=== PATIENT | female | born 1950 | race Caucasian/White ===

== ENCOUNTER 2017-02-08 10:42 | Emergency (ER) | payer MEDICARE, MEDICAID ==
[~2017-02-08] VITALS: Ht 157.5 cm; Wt 60.8 kg
[~2017-02-08 10:42] MED LIST: HYDR-971 PO; MUPI22OI2 TP; SULF1TAB24 PO
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
[2017-02-08] MEDS ORDERED: HYDROcodone/APAP 10/325 1 TAB TABLET PO ONE (11:30)
[2017-02-08] MEDS ORDERED: ONDANSETRON ODT 4 MG TAB.RAPDIS. PO ONE (11:30)
[2017-02-08] MEDS ORDERED: clonazePAM 0.5 MG TABLET PO ONE (11:30)
[2017-02-08] MEDS ORDERED: HYDR-963 PO (11:49)
[2017-02-08] MEDS ORDERED: CLON2TAB2 PO (11:49)
[2017-02-08 12:48] VITALS: BP 113/91
== END 2017-02-08 12:49 | disposition home or self-care (01) ==
LOC: ER 10:42
DX: F13.239 Sedative, hypnotic or anxiolytic dependence with withdrawal, unspecified (principal); F11.23 Opioid dependence with withdrawal; F41.9 Anxiety disorder, unspecified; J44.9 Chronic obstructive pulmonary disease, unspecified; F32.9 Major depressive disorder, single episode, unspecified; I10 Essential (primary) hypertension; F12.10 Cannabis abuse, uncomplicated; F43.10 Post-traumatic stress disorder, unspecified; G89.29 Other chronic pain; Z88.0 Allergy status to penicillin
CPT/HCPCS: 99284; Q0162

== ENCOUNTER 2017-04-14 13:36 | Emergency (ER) | payer MEDICARE, MEDICAID ==
[~2017-04-14] VITALS: Ht 152.4 cm; Wt 59.0 kg
[2017-04-14 13:36] VITALS: BP 156/97
[~2017-04-14 13:36] MED LIST changes: +CLON2TAB2 PO; +HYDR-963 PO
[2017-04-14] MEDS ORDERED: DIPHTH,PERTUSS(ACELL),TET TOX 0.5 ML DISP.SYRIN. VAX IM ONE (14:15)
--- NOTE | 2017-04-14 14:47 | RAD ---
Indication fall. Head and neck injury. Pain. The head and cervical spine were evaluated. Images of the cervical spine were reformatted in the coronal and sagittal planes. No prior imaging of the head is available CT head: Findings. The calvarium appears unremarkable and the visualized paranasal sinuses appear normal. There is no subdural or epidural hematoma. There is no mass or midline shift. No hemorrhage is seen. No acute intracranial finding is apparent CT cervical spine: Findings There is some chronic pleural-parenchymal scarring at the lung apices. There are a few lymph nodes seen in the visualized upper mediastinum. These are likely incidental and appear similar to a study 09/16/2012. A significant soft tissue finding in the neck is not seen. Review of axial images is negative with regards to any fracture. Best demonstrated on the reformatted images are some degenerative changes. There is multilevel disc space narrowing. An acute finding is not seen on the reformatted images. IMPRESSION: Spondylitic changes in the cervical spine. No acute findings seen. No acute intracranial finding seen PQRS Compliance Statement: One or more of the following individualized dose reduction techniques were utilized for this examination: 1. Automated exposure control 2. Adjustment of the mA and/or kV according to patient size 3. Use of iterative reconstruction technique
--- NOTE | 2017-04-14 14:50 | RAD ---
Indication fall, pain. An AP view of the pelvis was obtained as well as targeted AP and frog leg views of the left hip. There is deformity, compatible with fracture, involving the left ischium. There is a mildly distracted fracture of the inferior pubic ramus. The chronicity is uncertain. Correlation with targeted physical exam. The hip joint appears unremarkable. IMPRESSION: Fracture deformity, the chronicity of which is uncertain, involving the left inferior pubic ramus. No hip fracture seen
[2017-04-14] MEDS ORDERED: HYDROcodone/APAP 10/325 1 TAB TABLET PO ONE (15:00)
--- NOTE | 2017-04-14 16:05 | PHYS DOC ---
Past Medical History Past Medical History: Anxiety, COPD, Depression, Hypertension, Other Additional Past Medical Histor: PTSD,CHRONIC BACK PAIN Past Surgical History: Hysterectomy, Tubal ligation Alcohol Use: None Drug Use: Marijuana Adult General Chief Complaint Chief Complaint: MECHANICAL FALL HPI HPI [id number] female with a history of anxiety depression presents to the emergency department after trip and fall. Patient bumped her left forehead she has some mild swelling and an abrasion in that distribution. Tetanus is not up- to-date. She denies loss of consciousness. She reported some neck pain on arrival. A collar was placed She does have some soreness in the left hip area. No chest pain or shortness of breath. Denies abdominal pain. Normal range of motion of legs without difficulty. Denies spinal pain Review of Systems Review of Systems Constitutional: Denies fever or chills [] Eyes: Denies change in visual acuity, redness, or eye pain [] HENT: Denies nasal congestion or sore throat [] Respiratory: Denies cough or shortness of breath [] Cardiovascular: No additional information not addressed in HPI [] GI: Denies abdominal pain, nausea, vomiting, bloody stools or diarrhea [] : Denies dysuria or hematuria [] Musculoskeletal: Denies back pain or joint pain [] Integument: Denies rash or skin lesions [] Neurologic: Denies headache, focal weakness or sensory changes [] Endocrine: Denies polyuria or polydipsia [] Current Medications Current Medications Current Medications Medications (Trade) Dose Ordered Sig/Jhon Start Time Stop Time Status Last Admin Dose Admin Acetaminophen/ Hydrocodone Bitart (Lortab 10/325) 1 tab 1X ONCE 04/14/17 15:00 04/14/17 15:01 DC 04/14/17 14:53 1 TAB Diphtheria/ Tetanus/Acell Pertussis (Boostrix) 0.5 ml ONCE ONCE 04/14/17 14:15 04/14/17 14:16 DC 04/14/17 14:35 0.5 ML Allergies Allergies Allergies Coded Allergies Type Severity Reaction Last Updated Verified Penicillins Allergy Intermediate RASH 06/09/15 Yes Physical Exam Physical Exam Well appearing 67-year-old female no acute distress mild abrasion left forehead with minimal soft tissue swelling locally. No bony tenderness or crepitus. Extra muscles intact. C-collar in place removed for exam with in-line immobilization. No step off or bony midline tenderness. Nonfocal neurologic exam. Mild soft tissue tenderness over left hip area. Nontender stable pelvis HENT: Normocephalic, atraumatic, bilateral external ears normal, oropharynx moist, no oral exudates, nose normal. [] Eyes: PERRLA, EOMI, conjunctiva normal, no discharge. [] Neck: Normal range of motion, no tenderness, supple, no stridor. [] Cardiovascular:Heart rate regular rhythm, no murmur [] Lungs & Thorax: Bilateral breath sounds clear to auscultation [] Abdomen: Bowel sounds normal, soft, no tenderness, no masses, no pulsatile masses. [] Skin: Warm, dry, no erythema, no rash. [] Back: No tenderness, no CVA tenderness. [] Extremities: No tenderness, no cyanosis, no clubbing, ROM intact, no edema. [] Neurologic: Alert and oriented X 3, normal motor function, normal sensory function, no focal deficits noted. [] Psychologic: Affect normal, judgement normal, mood normal. [] Current Patient Data Vital Signs Vital Signs Date Time Temp Pulse Resp B/P (MAP) Pulse Ox O2 Delivery O2 Flow Rate FiO2 04/14/17 13:36 98.4 89 18 156/97 (116) 96 Room Air 98.4 EKG EKG [] Radiology/Procedures Radiology/Procedures [] Course & Med Decision Making Course & Med Decision Making Pertinent Labs and Imaging studies reviewed. (See chart for details) Minor head injury with contusion and abrasion. CT head and C-spine negative. X- ray of pelvis with old inferior pubic rami fracture. Acuity unclear from a radiographic standpoint however clinically patient is able to ambulate and bear weight without any difficulty or pain on reevaluation prior to discharge. Other workup or treatment indicated. Patient agrees with outpatient follow-up and strict return precautions given [] Dragon Disclaimer Dragon Disclaimer This electronic medical record was generated, in whole or in part, using a voice recognition dictation system. Departure Departure Impression: Primary Impression: Minor head injury Additional Impressions: Forehead contusion Forehead abrasion Contusion of left hip Disposition: HOME, SELF-CARE Condition: IMPROVED Referrals: NO PCP (PCP) Patient Instructions: Abrasions, Contusion, Head Injury, Adult Additional Instructions: Suffered a minor head injury today. He have a contusion to her left forehead with an abrasion. Her tetanus has been updated. This tetanus includes coverage for pertussis. U have a contusion of her left hip area but no evidence of acute fracture. He had an old fracture of one of your pubic rami however since her able to walk easily with no pain this does not appear to be a recent injury. Follow up with your doctor tomorrow and return immediately for new severe or worsening symptoms Problem Qualifiers PHILIP SOSA MD Apr 14, 2017 16:05
== END 2017-04-14 16:47 | disposition home or self-care (01) ==
LOC: ER 13:36
DX: S00.83XA Contusion of other part of head, initial encounter (principal); S70.02XA Contusion of left hip, initial encounter; S00.81XA Abrasion of other part of head, initial encounter; S09.90XA Unspecified injury of head, initial encounter; M54.2 Cervicalgia; F41.9 Anxiety disorder, unspecified; J44.9 Chronic obstructive pulmonary disease, unspecified; F32.9 Major depressive disorder, single episode, unspecified; F43.10 Post-traumatic stress disorder, unspecified; F12.10 Cannabis abuse, uncomplicated; I10 Essential (primary) hypertension; G89.29 Other chronic pain; Z88.0 Allergy status to penicillin; Z90.710 Acquired absence of both cervix and uterus; W01.0XXA Fall on same level from slipping, tripping and stumbling without subsequent striking against object, initial encounter; Y93.89 Activity, other specified; Y92.89 Other specified places as the place of occurrence of the external cause; Y99.8 Other external cause status
CPT/HCPCS: 70450; 72125; 73502; 90471; 90715; 99284-25

== ENCOUNTER 2017-08-02 20:41 | Emergency (ER) | payer MEDICARE, MEDICAID ==
[~2017-08-02] VITALS: Ht 152.4 cm; Wt 56.7 kg
[2017-08-02 21:41] LABS: BASO % 1 % (0-3); EOS % 1 % (0-3); HEMATOCRIT 44.8 % (36.0-47.0); HEMOGLOBIN 14.8 g/dL (12.0-15.5); LYMPH # 2.6 x10^3/uL (1.0-4.8); LYMPH % 53 % (24-48); MEAN CORPUSCULAR HEMOGLOBIN 30 pg (25-35); MEAN CORPUSCULAR HGB CONC 33 g/dL (31-37); MEAN CORPUSCULAR VOLUME 92 fL (79-100); MONO % 13 % (0-9); NEUT % 32 % (31-73); PLATELET COUNT 272 x10^3/uL (140-400); RED BLOOD COUNT 4.89 x10^6/uL (3.50-5.40); RED CELL DISTRIBUTION WIDTH 14.1 % (11.5-14.5); WHITE BLOOD COUNT 4.9 x10^3/uL (4.0-11.0)
--- NOTE | 2017-08-02 21:56 | PHYS DOC ---
Past Medical History Past Medical History: Anxiety, COPD, Depression, Hypertension, Other Additional Past Medical Histor: PTSD,CHRONIC BACK PAIN Past Surgical History: Hysterectomy, Tubal ligation Alcohol Use: None Drug Use: Marijuana Adult General Chief Complaint Chief Complaint: CHEST PAIN HPI HPI Patient is a 67 year old female who had flu shot on tuesday. on tuesday she has had cough, dry heaves, and "passed out" although she remembers what happened. she went to and told she had pleurisy. she has constant chest pain since tuesday. It hurts to touch, cough, breathe, and move. she denies fever, +diarrhea. she has COPD but states she never smoked. she did live with smokers. she has symbicort but can't get the capsule to work so she doesn't use it. she has hydrocodone 10/325 but doesn't want to mask her pain so she hasn't been taking it. she has her prescription for it. she takes tylenol PM to sleep Review of Systems Review of Systems Constitutional: Denies fever or chills [] Eyes: Denies change in visual acuity, redness, or eye pain [] HENT: Denies nasal congestion or sore throat [] Respiratory: Denies cough or shortness of breath [] Cardiovascular: No additional information not addressed in HPI [] GI: Denies abdominal pain, nausea, vomiting, bloody stools or diarrhea [] : Denies dysuria or hematuria [] Musculoskeletal: Denies back pain or joint pain [] Integument: Denies rash or skin lesions [] Neurologic: Denies headache, focal weakness or sensory changes [] Endocrine: Denies polyuria or polydipsia [] Current Medications Current Medications Current Medications Medications (Trade) Dose Ordered Sig/Jhon Start Time Stop Time Status Last Admin Dose Admin Acetaminophen/ Hydrocodone Bitart (Lortab 10/325) 1 tab 1X ONCE 08/02/17 22:15 08/02/17 22:16 DC 08/02/17 22:40 1 TAB Albuterol/ Ipratropium (Duoneb) 3 ml 1X ONCE 08/02/17 22:15 08/02/17 22:16 DC 08/02/17 21:52 3 ML Allergies Allergies Allergies Coded Allergies Type Severity Reaction Last Updated Verified Penicillins Allergy Intermediate RASH 8/31/15 Yes Physical Exam Physical Exam Constitutional: Well developed, well nourished, no acute distress, non-toxic appearance. [] HENT: Normocephalic, atraumatic, bilateral external ears normal, oropharynx moist, no oral exudates, nose normal. [] Eyes: PERRLA, EOMI, conjunctiva normal, no discharge. [] Neck: Normal range of motion, no tenderness, supple, no stridor. [] Cardiovascular:Heart rate regular rhythm, no murmur [] Lungs & Thorax: mildly coarse breath sounds bilat Abdomen: Bowel sounds normal, soft, no tenderness, no masses, no pulsatile masses. [] Skin: Warm, dry, no erythema, no rash. [] Back: No tenderness, no CVA tenderness. [] Extremities: No tenderness, no cyanosis, no clubbing, ROM intact, no edema. [] Neurologic: Alert and oriented X 3, normal motor function, normal sensory function, no focal deficits noted. [] Psychologic: Affect normal, judgement normal, mood normal. [] Current Patient Data Vital Signs Vital Signs Date Time Temp Pulse Resp B/P (MAP) Pulse Ox O2 Delivery O2 Flow Rate FiO2 08/02/17 23:30 99 22 116/74 (88) 96 Room Air 08/02/17 20:41 98.7 98.7 Lab Values Laboratory Tests Test 08/02/17 20:48 White Blood Count 4.9 x10^3/uL (4.0-11.0) Red Blood Count 4.89 x10^6/uL (3.50-5.40) Hemoglobin 14.8 g/dL (12.0-15.5) Hematocrit 44.8 % (36.0-47.0) Mean Corpuscular Volume 92 fL (79-100) Mean Corpuscular Hemoglobin 30 pg (25-35) Mean Corpuscular Hemoglobin Concent 33 g/dL (31-37) Red Cell Distribution Width 14.1 % (11.5-14.5) Platelet Count 272 x10^3/uL (140-400) Neutrophils (%) (Auto) 32 % (31-73) Lymphocytes (%) (Auto) 53 % (24-48) H Monocytes (%) (Auto) 13 % (0-9) H Eosinophils (%) (Auto) 1 % (0-3) Basophils (%) (Auto) 1 % (0-3) Neutrophils # (Auto) 1.6 x10^3uL (1.8-7.7) L Lymphocytes # (Auto) 2.6 x10^3/uL (1.0-4.8) Monocytes # (Auto) 0.6 x10^3/uL (0.0-1.1) Eosinophils # (Auto) 0.1 x10^3/uL (0.0-0.7) Basophils # (Auto) 0.0 x10^3/uL (0.0-0.2) Sodium Level 137 mmol/L (136-145) Potassium Level 4.1 mmol/L (3.5-5.1) Chloride Level 100 mmol/L (98-107) Carbon Dioxide Level 29 mmol/L (21-32) Anion Gap 8 (6-14) Blood Urea Nitrogen 11 mg/dL (7-20) Creatinine 1.1 mg/dL (0.6-1.0) H Estimated GFR (Cockcroft-Gault) 49.8 BUN/Creatinine Ratio 10 (6-20) Glucose Level 98 mg/dL (70-99) Calcium Level 9.6 mg/dL (8.5-10.1) Total Bilirubin 0.3 mg/dL (0.2-1.0) Aspartate Amino Transferase (AST) 15 U/L (15-37) Alanine Aminotransferase (ALT) 14 U/L (14-59) Alkaline Phosphatase 91 U/L (46-116) Total Protein 7.6 g/dL (6.4-8.2) Albumin 3.5 g/dL (3.4-5.0) Albumin/Globulin Ratio 0.9 (1.0-1.7) L Laboratory Tests 08/02/17 20:48 Laboratory Tests 08/02/17 20:48 EKG EKG time 2051 HR 82 no stemi[] Radiology/Procedures Radiology/Procedures no pneumonia seen[] Course & Med Decision Making Course & Med Decision Making Pertinent Labs and Imaging studies reviewed. (See chart for details) pt with cough, congestion x 1 week. chest pain consistant with pleurisy. hx of copd. will give ventolin and prednisone for home. she will call her doctor today to discuss her symbicort that she won't use. She has hydrocodone 10/325 at home that she can take Dragon Disclaimer Dragon Disclaimer This electronic medical record was generated, in whole or in part, using a voice recognition dictation system. Departure Departure Disposition: HOME, SELF-CARE Condition: IMPROVED Referrals: NO PCP (PCP) Patient Instructions: Pleurisy, [id number] Additional Instructions: start prednisone in the morning. ventolin for difficulty breathing. return here if symptoms worsen for re-evaluation. call your doctor tomorrow to discuss symbicort. Scripts Prednisone (PREDNISONE) 50 Mg Tablet 1 TAB PO DAILY for 5 Days, #5 TAB Prov: HAWA KERR MD 08/02/17 Albuterol Sulfate (VENTOLIN HFA INHALER) 18 Gm Hfa.aer.ad 2 PUFF INH Q4HRS for wheezing for 14 Days, #1 INHALER 0 Refills Prov: HAWA KERR MD 08/02/17 HAWA KERR MD Aug 02, 2017 21:56
[2017-08-02 21:58] LABS: CALCIUM 9.6 mg/dL (8.5-10.1); CREATININE 1.1 mg/dL (0.6-1.0); GFR 49.8; POTASSIUM 4.1 mmol/L (3.5-5.1)
[2017-08-02 22:05] LABS: ALBUMIN 3.5 g/dL (3.4-5.0); ALBUMIN/GLOBULIN RATIO 0.9 (1.0-1.7); TOTAL BILIRUBIN 0.3 mg/dL (0.2-1.0); TOTAL PROTEIN 7.6 g/dL (6.4-8.2)
[2017-08-02] MEDS ORDERED: IPRATRPIUM/ALBUTEROL 0.5/2.5MG 3 ML NEBU. NEB ONE (22:15)
[2017-08-02] MEDS ORDERED: HYDROcodone/APAP 10/325 1 TAB TABLET PO ONE (22:15)
[2017-08-02] MEDS ORDERED: PRED50TA PO (23:02)
[2017-08-02] MEDS ORDERED: VENTOLIN HFA18 GM INH (23:02)
[2017-08-02 23:30] VITALS: BP 116/74
--- NOTE | 2017-08-03 06:20 | EKG ---
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
--- NOTE | 2017-08-03 08:39 | RAD ---
EXAM: CHEST 1 VIEW History: Chest pain COMPARISON: 08/03/2013 TECHNIQUE: Single portable radiograph of the chest FINDINGS: The cardiac silhouette is unremarkable. The lungs are clear bilaterally. The costophrenic sulci are clear and well demarcated. IMPRESSION: No radiographic evidence of an acute cardiopulmonary process.
[2017-08-08] MEDS ORDERED: DULO60CA6 PO (02:14)
[2017-08-08] MEDS ORDERED: amlodipine besylate (02:29)
[2017-08-08] MEDS ORDERED: trazadone PO (07:02)
== END 2017-08-02 23:26 | disposition home or self-care (01) ==
LOC: ER 20:41
DX: R05 Cough (principal); R09.81 Nasal congestion; R07.9 Chest pain, unspecified; F41.9 Anxiety disorder, unspecified; J44.9 Chronic obstructive pulmonary disease, unspecified; F32.9 Major depressive disorder, single episode, unspecified; I10 Essential (primary) hypertension; G89.29 Other chronic pain; F43.10 Post-traumatic stress disorder, unspecified; Z88.0 Allergy status to penicillin
CPT/HCPCS: 36415; 71010; 80053; 85025; 87040; 93005; 94250; 94640; 99285; J7620

== ENCOUNTER 2018-02-11 13:52 | Emergency (ER) | payer MEDICARE, MEDICAID ==
[2018-02-11] MEDS: LIDOCAINE 2% JELLY 6ML IN APPLICATOR. MM (14:57)
[2018-02-11] MEDS: TAMSULOSIN 0.4 MG CAP.ER.24H. PO (15:00)
[2018-02-11] MEDS: KETOROLAC 60 MG/2 ML INJ. IM (15:01)
[2018-02-11 15:07] LABS: BILIRUBIN,URINE NEGATIVE (NEG); CLARITY,URINE CLEAR; GLUCOSE,URINE NEGATIVE (NEG); NITRITE,URINE NEGATIVE (NEG); PH,URINE 5.5; PROTEIN,URINE NEGATIVE (NEG-TRACE); UROBILINOGEN,URINE 0.2 mg/dL (0.2 mg/dL)
[2018-02-11 15:17] LABS: BACTERIA,URINE 0 /HPF (0-FEW); COLOR,URINE STRAW; RBC,URINE RARE /HPF (0-2); SQUAMOUS EPITHELIAL CELL,UR OCC /LPF; WBC,URINE 0 /HPF (0-4)
== END 2018-02-11 16:23 | disposition home or self-care (01) ==
LOC: ER 13:52
DX: R33.9 Retention of urine, unspecified (principal); F41.9 Anxiety disorder, unspecified; F32.9 Major depressive disorder, single episode, unspecified; I12.9 Hypertensive chronic kidney disease with stage 1 through stage 4 chronic kidney disease, or unspecified chronic kidney disease; N18.9 Chronic kidney disease, unspecified; J44.9 Chronic obstructive pulmonary disease, unspecified; M19.90 Unspecified osteoarthritis, unspecified site; F43.10 Post-traumatic stress disorder, unspecified; F12.10 Cannabis abuse, uncomplicated; Z90.710 Acquired absence of both cervix and uterus; Z98.51 Tubal ligation status; Z88.0 Allergy status to penicillin
CPT/HCPCS: 51702; 81001; 96372; 99284-25; J1885

== ENCOUNTER 2018-02-28 02:14 | Emergency (ER) | payer MEDICARE, MEDICAID ==
[2018-02-28] MEDS: KETOROLAC 30 MG/ML INJ. IM (03:01)
== END 2018-02-28 03:15 | disposition home or self-care (01) ==
LOC: ER 02:14
DX: T83.038A Leakage of other urinary catheter, initial encounter (principal); F32.9 Major depressive disorder, single episode, unspecified; I12.9 Hypertensive chronic kidney disease with stage 1 through stage 4 chronic kidney disease, or unspecified chronic kidney disease; N18.9 Chronic kidney disease, unspecified; J44.9 Chronic obstructive pulmonary disease, unspecified; M19.90 Unspecified osteoarthritis, unspecified site; F12.10 Cannabis abuse, uncomplicated; Z90.710 Acquired absence of both cervix and uterus; Z98.51 Tubal ligation status; Z88.0 Allergy status to penicillin
CPT/HCPCS: 96372; 99284; J1885

== ENCOUNTER 2018-06-29 16:43 | Emergency (ER) | payer MEDICARE, MEDICAID ==
[~2018-06-29] VITALS: Ht 144.8 cm; Wt 55.3 kg
[~2018-06-29 16:43] MED LIST changes: +ALPR0.5T PO; +AMLO10TA6 PO; +ASPI-612 PO; +ATOR20TA58 PO; -CLON2TAB2 PO; +CLON2TAB9 PO; +DILT240C77 PO; +DOXY100T PO; +DULO60CA6 PO; +LIDO30CR TP; +PANT40TA5 PO; +PRED50TA PO; +PROM118S5 PO; +VENTOLIN HFA18 GM INH; +amlodipine besylate; +trazadone PO
[2018-06-29 19:58] VITALS: BP 109/84
[2018-06-29] MEDS ORDERED: TRAM50TA PO (20:13)
[2018-06-29] MEDS ORDERED: IBUPROFEN 600 MG TABLET. PO ONE (20:15)
--- NOTE | 2018-06-29 20:16 | PHYS DOC ---
Past Medical History Past Medical History: Anxiety, Arthritis, COPD, Depression, Hypertension, Renal Disease, Other Additional Past Medical Histor: PTSD,CHRONIC BACK/CHEST PAIN,CKD,OA,WEAKNESS, URINARY RETENTION Past Surgical History: Hysterectomy, Tubal ligation Alcohol Use: None Drug Use: Marijuana Adult General Chief Complaint Chief Complaint: CATHETER CHANGE HPI HPI 68 year old female presents with report of Amaya catheter discomfort. Reports she had recently gone to [facility] ER for suprapubic discomfort and was noted to be in urinary retention. Patient received a Amaya catheter. Reports today she is having pain and thinks that the Amaya catheter is too big. Patient does have a history of prior urinary retention. Denies fever or chills. Reports she is currently taking Azo and Tylenol without significant improvement. Patient reports she feels she may need some pain medication and is requesting tramadol by name. This does report she drove to the emergency department today. Review of Systems Review of Systems Constitutional: Denies fever or chills [] Eyes: Denies change in visual acuity, redness, or eye pain [] HENT: Denies nasal congestion or sore throat [] Respiratory: Denies cough or shortness of breath [] Cardiovascular: No additional information not addressed in HPI [] GI: Denies abdominal pain, nausea, vomiting, bloody stools or diarrhea [] : Denies dysuria or hematuria [] Musculoskeletal: Denies back pain or joint pain [] Integument: Denies rash or skin lesions [] Neurologic: Denies headache, focal weakness or sensory changes [] Endocrine: Denies polyuria or polydipsia [] All other systems were reviewed and found to be within normal limits, except as documented in this note. Current Medications Current Medications Current Medications Medications (Trade) Dose Ordered Sig/Jhon Start Time Stop Time Status Last Admin Dose Admin Ibuprofen (Motrin) 600 mg 1X ONCE 06/29/18 20:15 06/29/18 20:16 DC 06/29/18 20:35 600 MG Tamsulosin HCl (Flomax) 0.4 mg 1X ONCE 06/29/18 20:30 06/29/18 20:31 DC 06/29/18 20:35 0.4 MG Allergies Allergies Allergies Coded Allergies Type Severity Reaction Last Updated Verified Penicillins Allergy Intermediate RASH 06/09/15 Yes Physical Exam Physical Exam Constitutional: Well developed, well nourished, no acute distress, non-toxic appearance. [] HENT: Normocephalic, atraumatic, bilateral external ears normal, oropharynx moist, no oral exudates, nose normal. [] Eyes: PERRLA, EOMI, conjunctiva normal, no discharge. [] Neck: Normal range of motion, no tenderness, supple, no stridor. [] Cardiovascular:Heart rate regular rhythm, no murmur [] Lungs & Thorax: Bilateral breath sounds clear to auscultation [] Abdomen: Bowel sounds normal, soft, no tenderness, no masses, no pulsatile masses. [] Skin: Warm, dry, no erythema, no rash. [] Back: No tenderness, no CVA tenderness. [] Extremities: No tenderness, no cyanosis, no clubbing, ROM intact, no edema. [] Neurologic: Alert and oriented X 3, normal motor function, normal sensory function, no focal deficits noted. [] Psychologic: Affect normal, judgement normal, mood normal. [] Current Patient Data Vital Signs Vital Signs Date Time Temp Pulse Resp B/P (MAP) Pulse Ox O2 Delivery O2 Flow Rate FiO2 06/29/18 19:58 97.7 74 20 109/84 (92) 97 Room Air 97.7 Lab Values Laboratory Tests Test 06/29/18 20:20 Urine Collection Type U cath Urine Color Yellow Urine Clarity Clear Urine pH 5.5 Urine Specific [place] 1.010 Urine Protein Negative mg/dL (NEG-TRACE) Urine Glucose (UA) Negative mg/dL (NEG) Urine Ketones (Stick) Negative mg/dL (NEG) Urine Blood Large (NEG) Urine Nitrite Negative (NEG) Urine Bilirubin Negative (NEG) Urine Urobilinogen Dipstick 0.2 mg/dL (0.2 mg/dL) Urine Leukocyte Esterase Small (NEG) Urine RBC Occ /HPF (0-2) Urine WBC Occ /HPF (0-4) Urine Amorphous Sediment Present /HPF Urine Bacteria 0 /HPF (0-FEW) EKG EKG [] Radiology/Procedures Radiology/Procedures [] Course & Med Decision Making Course & Med Decision Making Pertinent Labs and Imaging studies reviewed. (See chart for details) [] Dragon Disclaimer Dragon Disclaimer This electronic medical record was generated, in whole or in part, using a voice recognition dictation system. Departure Departure Impression: Primary Impression: Problem with Amaya catheter Disposition: HOME, SELF-CARE Condition: STABLE Referrals: NO PCP (PCP) TONY LR MD Patient Instructions: Amaya Catheter Care, Adult Scripts Tamsulosin Hcl (FLOMAX) 0.4 Mg Cap.er.24h 1 CAP PO DAILY, #7 CAP 0 Refills Prov: PHILIP HARRISON DO 06/29/18 Tramadol Hcl (TRAMADOL HCL) 50 Mg Tablet 50 MG PO Q6HRS PRN for PAIN, #10 TAB Take each tablet with one (1) regular strength Tylenol 325mg. Prov: PHILIP HARRISON DO 06/29/18 Problem Qualifiers Primary Impression: Problem with Amaya catheter Encounter type: initial encounter Qualified Codes: T83.9XXA - Unspecified complication of genitourinary prosthetic device, implant and graft, initial encounter PHILIP HARRISON DO Jun 29, 2018 20:15
[2018-06-29 20:28] LABS: BILIRUBIN,URINE NEGATIVE (NEG); CLARITY,URINE CLEAR; COLOR,URINE YELLOW; NITRITE,URINE NEGATIVE (NEG); PH,URINE 5.5; PROTEIN,URINE NEGATIVE (NEG-TRACE); UROBILINOGEN,URINE 0.2 mg/dL (0.2 mg/dL)
[2018-06-29] MEDS ORDERED: TAMSULOSIN 0.4 MG CAP.ER.24H. PO ONE (20:30)
[2018-06-29 20:34] LABS: BACTERIA,URINE 0 /HPF (0-FEW); RBC,URINE OCC /HPF (0-2); WBC,URINE OCC /HPF (0-4)
[2018-06-29 20:36] LABS: AMORPHOUS SEDIMENT,UR PRESENT /HPF
[2018-06-29] MEDS ORDERED: TAMS0.4C97 PO (20:45)
== END 2018-06-29 21:21 | disposition home or self-care (01) ==
LOC: ER 16:43
DX: T83.9XXA Unspecified complication of genitourinary prosthetic device, implant and graft, initial encounter (principal); F41.9 Anxiety disorder, unspecified; F32.9 Major depressive disorder, single episode, unspecified; J44.9 Chronic obstructive pulmonary disease, unspecified; I10 Essential (primary) hypertension; G89.29 Other chronic pain; Z90.710 Acquired absence of both cervix and uterus; Z98.51 Tubal ligation status; Z88.0 Allergy status to penicillin
CPT/HCPCS: 81001; 87086; 99284; A4314

== ENCOUNTER 2018-07-15 12:21 | Emergency (ER) | payer MEDICARE, MEDICAID ==
[~2018-07-15] VITALS: Ht 152.4 cm; Wt 54.4 kg
[~2018-07-15 12:21] MED LIST changes: +TAMS0.4C97 PO; +TRAM50TA PO
[2018-07-15 12:30] VITALS: BP 127/86
[2018-07-15 13:15] LABS: BILIRUBIN,URINE NEGATIVE (NEG); COLOR,URINE YELLOW; NITRITE,URINE NEGATIVE (NEG); PROTEIN,URINE NEGATIVE (NEG-TRACE); UROBILINOGEN,URINE 0.2 mg/dL (0.2 mg/dL)
[2018-07-15 13:22] LABS: CLARITY,URINE CLEAR
[2018-07-15 13:24] LABS: BACTERIA,URINE 0 /HPF (0-FEW); RBC,URINE RARE /HPF (0-2); SQUAMOUS EPITHELIAL CELL,UR OCC /LPF; WBC,URINE RARE /HPF (0-4)
--- NOTE | 2018-07-15 13:39 | PHYS DOC ---
Past Medical History Past Medical History: Anxiety, Arthritis, COPD, Depression, Hypertension, Renal Disease, Other Additional Past Medical Histor: PTSD,CHRONIC BACK/CHEST PAIN,CKD,OA,WEAKNESS, URINARY RETENTION Past Surgical History: Hysterectomy, Tubal ligation Alcohol Use: None Drug Use: Marijuana Adult General Chief Complaint Chief Complaint: URINARY RETENTION HPI HPI Patient is a 68 year old female with history of COPD, hypertension, depression , renal disease, chronic urinary retention, who presents today complaining of inability to void since yesterday evening after removing her Amaya catheter. She states her friend helped her pull out. She presents to the ED today with removed Amaya catheter with the balloon still inflated. Patient denies any urethral pain. Denies any bleeding. She is supposed to keep the Amaya catheter in place until seen by the urologist but she tends to have family members/ friends remove it as needed. She is well known to this ED for this. Review of Systems Review of Systems Constitutional: Denies fever or chills [] Eyes: Denies change in visual acuity, redness, or eye pain [] HENT: Denies nasal congestion or sore throat [] Respiratory: Denies cough or shortness of breath [] Cardiovascular: No additional information not addressed in HPI [] GI: Denies abdominal pain, nausea, vomiting, bloody stools or diarrhea [] :Reports inability to void. Denies dysuria or hematuria [] Musculoskeletal: Denies back pain or joint pain [] Integument: Denies rash or skin lesions [] Neurologic: Denies headache, focal weakness or sensory changes [] All other systems were reviewed and found to be within normal limits, except as documented in this note. Allergies Allergies Allergies Coded Allergies Type Severity Reaction Last Updated Verified Penicillins Allergy Intermediate RASH 06/09/15 Yes Physical Exam Physical Exam Constitutional: Well developed, well nourished, no acute distress, non-toxic appearance. [] HENT: Normocephalic, atraumatic, bilateral external ears normal, oropharynx moist, no oral exudates, nose normal. [] Eyes: PERRLA, EOMI, conjunctiva normal, no discharge. [] Neck: Normal range of motion, no tenderness, supple, no stridor. [] Cardiovascular:Heart rate regular rhythm, no murmur [] Lungs & Thorax: Bilateral breath sounds clear to auscultation [] Abdomen: Bowel sounds normal, soft, no tenderness, no masses, no pulsatile masses. [] Skin: Warm, dry, no erythema, no rash. [] Back: No tenderness, no CVA tenderness. [] Extremities: No tenderness, no cyanosis, no clubbing, ROM intact, no edema. [] Neurologic: Alert and oriented X 3, normal motor function, normal sensory function, no focal deficits noted. [] Psychologic: Affect normal, judgement normal, mood normal. [] Current Patient Data Vital Signs Vital Signs Date Time Temp Pulse Resp B/P (MAP) Pulse Ox O2 Delivery O2 Flow Rate FiO2 07/15/18 12:30 97.6 116 18 127/86 (100) 95 Room Air 97.6 Lab Values Laboratory Tests Test 07/15/18 13:05 Urine Collection Type U cath Urine Color Yellow Urine Clarity Clear Urine pH 5.0 Urine Specific [place] 1.015 Urine Protein Negative mg/dL (NEG-TRACE) Urine Glucose (UA) Negative mg/dL (NEG) Urine Ketones (Stick) Negative mg/dL (NEG) Urine Blood Negative (NEG) Urine Nitrite Negative (NEG) Urine Bilirubin Negative (NEG) Urine Urobilinogen Dipstick 0.2 mg/dL (0.2 mg/dL) Urine Leukocyte Esterase Trace (NEG) Urine RBC Rare /HPF (0-2) Urine WBC Rare /HPF (0-4) Urine Squamous Epithelial Cells Occ /LPF Urine Renal Epithelial Cells Occ /LPF Urine Bacteria 0 /HPF (0-FEW) EKG EKG [] Radiology/Procedures Radiology/Procedures [] Course & Med Decision Making Course & Med Decision Making Pertinent Labs and Imaging studies reviewed. (See chart for details) See history of present illness, this is a 68-year-old female patient with history of urinary retention, supposed to be have a Amaya catheter she asked her friend to remove the catheter yesterday. She's been unable to void since then. Amaya catheter was replaced in the ED, UA negative for infection. She was discharged with instructions not to remove the Amaya catheter until seen by the urologist in the course of next week. Dragon Disclaimer Dragon Disclaimer This electronic medical record was generated, in whole or in part, using a voice recognition dictation system. Departure Departure Impression: Primary Impression: Urinary retention Disposition: 01 HOME, SELF-CARE Condition: STABLE Referrals: YONATHAN YATES MD (PCP) follow up with your urologist next week Patient Instructions: Amaya Catheter Care, Adult, Urinary Retention, Acute, Female Additional Instructions: We replaced your Amaya catheter in the emergency room. Please do not remove it, follow up with a urologist next week RIK FAIRCHILD APRN Jul 15, 2018 13:39
== END 2018-07-15 13:50 | disposition home or self-care (01) ==
LOC: ER 12:21
DX: R33.8 Other retention of urine (principal); T83.098A Other mechanical complication of other urinary catheter, initial encounter; Y82.8 Other medical devices associated with adverse incidents; Y92.89 Other specified places as the place of occurrence of the external cause; J44.9 Chronic obstructive pulmonary disease, unspecified; I12.9 Hypertensive chronic kidney disease with stage 1 through stage 4 chronic kidney disease, or unspecified chronic kidney disease; N18.9 Chronic kidney disease, unspecified; Z98.51 Tubal ligation status; Z90.710 Acquired absence of both cervix and uterus; Z88.0 Allergy status to penicillin
CPT/HCPCS: 51702; 81001; 87086; 99284; A4314

== ENCOUNTER 2018-07-25 17:35 | Emergency (ER) | payer MEDICARE, MEDICAID ==
[~2018-07-25] VITALS: Ht 157.5 cm; Wt 54.4 kg
[2018-07-25 17:54] VITALS: BP 125/86
[2018-07-25 18:01] LABS: BILIRUBIN,URINE NEGATIVE (NEG); CLARITY,URINE CLEAR; COLOR,URINE YELLOW; NITRITE,URINE NEGATIVE (NEG); PH,URINE 5.5; PROTEIN,URINE NEGATIVE (NEG-TRACE); UROBILINOGEN,URINE 0.2 mg/dL (0.2 mg/dL)
--- NOTE | 2018-07-25 18:12 | PHYS DOC ---
Past Medical History Past Medical History: Anxiety, Arthritis, COPD, Depression, Hypertension, Renal Disease, Other Additional Past Medical Histor: PTSD,CHRONIC BACK/CHEST PAIN,CKD,OA,WEAKNESS, URINARY RETENTION Past Surgical History: Hysterectomy, Tubal ligation Alcohol Use: None Drug Use: Marijuana Adult General Chief Complaint Chief Complaint: URINE CATHETER PROBLEM HPI HPI 68-year-old female presents to ER via POV for complaints of Mccollum catheter irritation. Patient was seen by this provider when she was ambulatory in the hallway prior to room placement and her to her voice complaints that she felt she would "pass out". To that statement patient had been taken to room 20 via wheelchair. This provider went to the room to discuss ER presentation and patient was argumentative and at times uncooperative during the initial conversation on symptoms bringing her to the ER. Patient at one point told this provider she did not want to discuss has history as she is told many people about what has been going on with her. Patient stated she came in due to Mccollum catheter irritation and wants her Mccollum removed. Provider attempted to calm patient and discuss why discussion on past history and symptoms were pertinent for today's ER visit/care/tx plan. Pt after further discussion calmed down and discussed that her Mccollum catheter was placed in the ER 2 weeks ago due to urinary retention. Patient reports she was seen by Dr. Bryant her urologist last Tuesday and started on Flomax and a sulfa based antibiotic. Patient states her catheter has been draining but is requesting the catheter be removed today due to irritation and she is wanting it changed as she feels the catheter is not in place. During discussion pt's HR was noted to be 110-120's and this was discussed along with previous statement that she felt she was going to pass out. Discussed EKG and labs to evaluate further and patient became more argumentative and rude. Pt refused any treatment and began demanding for things to be done. Attempts to calm pt and discuss sxs/reasons for coming to ER were returned with rude behavior with pt refusing any treatment other than having her Mccollum leg bag changed along with new cath statlock applied to thigh to hold mccollum in place. During this discussion pt stated she didn't think her mccollum was in place- informed pt that the urine bag had output which does indicate mccollum is draining bladder. Pt denied abd pain, N/V, or fever. Pt reports she is feeling anxious and frustrated with recent urinary issues. Patient did become tearful and emotional support was provided and attempts to calm patient were briefly effective. When this provider attempted to further discuss plan of care patient again became rude and refused any further treatment. This provider discussed she would be leaving AMA as she had feelings of dizziness and that she was going to pass out along with elevated HR during this encounter. Pt was advised of benefits of tests/further monitoring along with risks with leaving AMA. Pt was advised against driving with c/o dizziness/feeling faint. Review of Systems Review of Systems Constitutional: Denies fever or chills [] Eyes: Denies change in visual acuity or eye pain [] Respiratory: Denies cough or shortness of breath [] Cardiovascular: Denies CP/palpitations GI: Denies abdominal pain, nausea, vomiting, bloody stools or diarrhea [] : Reports irritation where mccollum cath is inserted Musculoskeletal: Denies back pain or joint pain [] Integument: Denies rash,swelling, or skin lesions [] Neurologic: Reports dizziness/feeling faint. Denies SANZ Pt did not allow for further questioning and full ROS unable to be obtained Allergies Allergies Allergies Coded Allergies Type Severity Reaction Last Updated Verified Penicillins Allergy Intermediate RASH 06/09/15 Yes Physical Exam Physical Exam Constitutional: Well developed, well nourished, no acute distress, non-toxic appearance. Clear speech HENT: Normocephalic, oropharynx moist Eyes: pupils equal Neck: Normal range of motion Cardiovascular:Tachycardic HR on monitor 110-120s Lungs & Thorax: Resp. equal/nonlabored Extremities: no cyanosis, ROM intact, no edema. [] Neurologic: Alert and oriented X 3, normal motor function, normal sensory function, no focal deficits noted. Was seen with steady gait in hallway Psychologic: Argumentative, anxious- at times rude to staff with responses Pt did not allow full physical assessment- pt had changed into a gown and had no erythema/rash or labial swelling which could be visualized as pt during discussion. Current Patient Data Vital Signs Vital Signs Date Time Temp Pulse Resp B/P (MAP) Pulse Ox O2 Delivery O2 Flow Rate FiO2 07/25/18 17:54 97.8 89 18 125/86 (99) 97 Room Air 97.8 Lab Values Laboratory Tests Test 07/25/18 17:43 Urine Collection Type Unknown Urine Color Yellow Urine Clarity Clear Urine pH 5.5 Urine Specific [place] 1.015 Urine Protein Negative mg/dL (NEG-TRACE) Urine Glucose (UA) Negative mg/dL (NEG) Urine Ketones (Stick) Negative mg/dL (NEG) Urine Blood Large (NEG) Urine Nitrite Negative (NEG) Urine Bilirubin Negative (NEG) Urine Urobilinogen Dipstick 0.2 mg/dL (0.2 mg/dL) Urine Leukocyte Esterase Small (NEG) Urine RBC >40 /HPF (0-2) Urine WBC 1-4 /HPF (0-4) Urine Bacteria Few /HPF (0-FEW) EKG EKG [] Radiology/Procedures Radiology/Procedures [] Course & Med Decision Making Course & Med Decision Making Pt left AMA not allowing physical exam or any tests. Patient was advised of risk and benefits associated with AMA. Patient advised not to drive her vehicle due to feeling faint and complaints of dizziness. Pt's case and AMA status of pt discussed with Dr. Omer. Glen Disclaimer Glen Disclaimer This electronic medical record was generated, in whole or in part, using a voice recognition dictation system. Departure Departure Impression: Primary Impression: Left against medical advice Disposition: 07 AGAINST MEDICAL ADVICE Referrals: YONATHAN YATES MD (PCP) Patient Instructions: Discharge Against Medical Advice Additional Instructions: You left without having any tests done for your complaints of dizziness. You were advised on risks of leaving against medical advice and benefits of tests including and not limited to EKG, labs, and further monitoring. You were advised not to drive as you had felt dizzy and like you were going to pass out. Follow-up advised with your primary doctor and urologist. ANTHONY HANLEY APRN Jul 25, 2018 18:12
[2018-07-25 18:15] LABS: BACTERIA,URINE FEW /HPF (0-FEW); RBC,URINE >40 /HPF (0-2)
[2018-07-28] MEDS ORDERED: HYDR-971 PO (13:10)
[2018-07-28] MEDS ORDERED: POLY17PO29 PO (13:11)
[2018-07-28] MEDS ORDERED: SENN1TAB8 PO (13:11)
== END 2018-07-25 18:26 | disposition left against medical advice (07) ==
LOC: ER 17:35
DX: T83.098A Other mechanical complication of other urinary catheter, initial encounter (principal); J44.9 Chronic obstructive pulmonary disease, unspecified; I10 Essential (primary) hypertension; F12.10 Cannabis abuse, uncomplicated; Z90.710 Acquired absence of both cervix and uterus; Z88.0 Allergy status to penicillin
CPT/HCPCS: 81001; 87086; 99283; 99284

== ENCOUNTER 2018-07-26 23:04 | Inpatient (IN) | payer MEDICARE, MEDICAID ==
[~2018-07-26] VITALS: Ht 152.4 cm; Wt 53.2 kg
[2018-07-27] VITALS (10 sets, daily range): BP systolic 111–163; BP diastolic 69–103
[2018-07-27] MEDS ORDERED: MORPHINE SULFATE 10 MG/ML VIAL. IV ONE (00:15)
[2018-07-27] MEDS ORDERED: ONDANSETRON PF 4 MG/2 ML VIAL. IV ONE (00:15)
--- NOTE | 2018-07-27 00:33 | PHYS DOC ---
Past Medical History Past Medical History: No Pertinent History Additional Past Medical Histor: scoliosis, falls, Past Surgical History: Tubal ligation Additional Past Surgical Histo: hysterectomy Alcohol Use: None Drug Use: Marijuana Adult General Chief Complaint Chief Complaint: ABDOMINAL PAIN HPI HPI Patient is a 68 year old female who presents with multiple complaints. The patient's primary complaint is diffuse abdominal pain. She has been having the pain over the last week. She states the pain is constant and she does not identify any aggravating or alleviating factors. Pain is diffuse. She denies prior history of similar symptoms or history of abdominal surgery other than a remote hysterectomy. She has had some nausea but no vomiting. She has had some constipation which she states is chronic. She denies urinary symptoms. Symptoms have been over the last week. The patient is known to have a chronically present indwelling Mccollum catheter since February of this year when she had some significant family losses and she developed urinary retention. She is currently being treated with a sulfa-based drugs for UTI. Patient also c/o some chest "heaviness" which has also been present over the last week. She does endorse a prior history of COPD and congestive heart failure. She denies worsening orthopnea or dyspnea with exertion. She does take some sort of diuretic medication daily. Review of Systems Review of Systems Constitutional: Denies fever or chills Eyes: Denies change in visual acuity HENT: Denies nasal congestion Respiratory: Denies cough or shortness of breath Cardiovascular: No additional information not addressed in HPI GI: as documented above : mccollum cath in place Musculoskeletal: Denies back pain Integument: Denies rash Neurologic: Denies focal neuro complaints All other systems were reviewed and found to be within normal limits, except as documented in this note. Current Medications Current Medications Current Medications Medications (Trade) Dose Ordered Sig/Jhon Start Time Stop Time Status Last Admin Dose Admin Info (CONTRAST GIVEN -- Rx MONITORING) 1 each PRN DAILY PRN 07/27/18 01:15 07/29/18 01:14 Iohexol (Omnipaque 300 Mg/ml) 60 ml 1X ONCE 07/27/18 01:15 07/27/18 01:16 DC 07/27/18 01:34 60 ML Morphine Sulfate (Morphine Sulfate) 4 mg 1X ONCE 07/27/18 01:15 07/27/18 01:16 DC 07/27/18 01:19 4 MG Ondansetron HCl (Zofran) 4 mg 1X ONCE 07/27/18 00:15 07/27/18 00:16 DC 07/27/18 00:35 4 MG Allergies Allergies Allergies Coded Allergies Type Severity Reaction Last Updated Verified Penicillins Allergy Intermediate RASH 06/09/15 Yes latex Allergy Unknown 07/26/18 Yes Physical Exam Physical Exam Constitutional: Well developed, well nourished, no acute distress HENT: Normocephalic, atraumatic, bilateral external ears normal, oropharynx moist Eyes: PERRLA, EOMI, conjunctiva normal Neck: Normal range of motion, no tenderness Cardiovascular:Heart rate regular rhythm, no murmur Lungs & Thorax: Bilateral breath sounds clear Abdomen: Bowel sounds normal, soft, diffusely TTP over upper quadrants but no guarding or rebound Skin: Warm, dry, no erythema Back: No tenderness, no CVA tenderness Extremities: No edema Neurologic: Alert and oriented X 3 Psychologic: Affect normal Current Patient Data Vital Signs Vital Signs Date Time Temp Pulse Resp B/P (MAP) Pulse Ox O2 Delivery O2 Flow Rate FiO2 07/27/18 03:22 88 14 148/88 (108) 99 Room Air 07/26/18 23:05 97.8 97.8 Lab Values Laboratory Tests Test 07/27/18 00:28 White Blood Count 5.8 x10^3/uL (4.0-11.0) Red Blood Count 4.23 x10^6/uL (3.50-5.40) Hemoglobin 13.3 g/dL (12.0-15.5) Hematocrit 38.6 % (36.0-47.0) Mean Corpuscular Volume 91 fL (79-100) Mean Corpuscular Hemoglobin 31 pg (25-35) Mean Corpuscular Hemoglobin Concent 34 g/dL (31-37) Red Cell Distribution Width 13.8 % (11.5-14.5) Platelet Count 272 x10^3/uL (140-400) Neutrophils (%) (Auto) 56 % (31-73) Lymphocytes (%) (Auto) 31 % (24-48) Monocytes (%) (Auto) 8 % (0-9) Eosinophils (%) (Auto) 4 % (0-3) H Basophils (%) (Auto) 1 % (0-3) Neutrophils # (Auto) 3.2 x10^3uL (1.8-7.7) Lymphocytes # (Auto) 1.8 x10^3/uL (1.0-4.8) Monocytes # (Auto) 0.5 x10^3/uL (0.0-1.1) Eosinophils # (Auto) 0.2 x10^3/uL (0.0-0.7) Basophils # (Auto) 0.0 x10^3/uL (0.0-0.2) Urine Collection Type Unknown Urine Color Yellow Urine Clarity Clear Urine pH 6.0 Urine Specific [place] 1.010 Urine Protein Negative mg/dL (NEG-TRACE) Urine Glucose (UA) Negative mg/dL (NEG) Urine Ketones (Stick) Negative mg/dL (NEG) Urine Blood Negative (NEG) Urine Nitrite Negative (NEG) Urine Bilirubin Negative (NEG) Urine Urobilinogen Dipstick 0.2 mg/dL (0.2 mg/dL) Urine Leukocyte Esterase Negative (NEG) Urine RBC 0 /HPF (0-2) Urine WBC Occ /HPF (0-4) Urine Squamous Epithelial Cells Occ /LPF Urine Bacteria 0 /HPF (0-FEW) Urine Mucus Slight /LPF Sodium Level 140 mmol/L (136-145) Potassium Level 3.6 mmol/L (3.5-5.1) Chloride Level 103 mmol/L (98-107) Carbon Dioxide Level 29 mmol/L (21-32) Anion Gap 8 (6-14) Blood Urea Nitrogen 9 mg/dL (7-20) Creatinine 1.1 mg/dL (0.6-1.0) H Estimated GFR (Cockcroft-Gault) 49.7 Glucose Level 123 mg/dL (70-99) H Calcium Level 9.8 mg/dL (8.5-10.1) Total Bilirubin 0.9 mg/dL (0.2-1.0) Direct Bilirubin 0.7 mg/dL (0.0-0.2) H Aspartate Amino Transferase (AST) 57 U/L (15-37) H Alanine Aminotransferase (ALT) 70 U/L (14-59) H Alkaline Phosphatase 198 U/L (46-116) H Troponin I Quantitative 0.021 ng/mL (0.000-0.055) IO-Vdn-P-Type Natriuretic Peptide 276 pg/mL (0-124) H Total Protein 6.7 g/dL (6.4-8.2) Albumin 3.2 g/dL (3.4-5.0) L Lipase 122 U/L (73-393) Laboratory Tests 07/27/18 00:28 Laboratory Tests 07/27/18 00:28 EKG EKG NSR, no ST changes Interpretation Time: 00:20 Radiology/Procedures Radiology/Procedures FINDINGS: Lower chest: Dependent opacities in the lung bases likely atelectasis/scarring. Abdomen and Pelvis: No focal liver lesion. The gallbladder is distended. There is intra and extrahepatic biliary ductal dilatation. There is also dilation of the pancreatic duct. This is seen to the level of a hypoenhancing mass within the pancreatic head/uncinate process measuring 2.2 x 1.7 x 1.8 cm (AP by transverse by craniocaudal). Distally the pancreas is atrophic. This hypoenhancing mass is suspicious for pancreatic adenocarcinoma and can be further evaluated by MRI. Spleen is unremarkable. Adrenal glands are normal. Symmetric nephrograms. Subcentimeter hypodense renal lesions are seen bilaterally. No hydronephrosis. No small or large bowel dilatation to suggest bowel obstruction. Large volume colonic stool content is seen. The appendix is normal. No abdominal or pelvic lymphadenopathy by size criteria. There is mild fat infiltration about the celiac trunk and SMA. No abdominal pelvic ascites. Mccollum catheter is seen within the decompressed bladder. Atherosclerotic calcifications of the aorta are seen. Bones: Chronic/healed left inferior pubic ramus fracture is seen. IMPRESSION: 1. Intra and extra hepatic biliary ductal dilatation and pancreatic ductal dilatation to the level of a 2.2 cm hypoenhancing mass of the pancreatic head. This is suspicious for pancreatic adenocarcinoma and can be further assessed by MRI. 2. Associated pancreatic atrophy is seen. 3. No abdominal or pelvic lymphadenopathy by size criteria although there is mild retroperitoneal fat infiltration involving portions of the celiac and SMA. Course & Med Decision Making Course & Med Decision Making Pertinent Labs and Imaging studies reviewed. (See chart for details) 00:10: Patient is seen and examined. Standard abd pain workup ordered. Meds for pain. EKG is normal. Troponin ordered. Patient was evaluated in the emergency department for diffuse abdominal pain which had been present over the last week. Her lab panel was essentially unremarkable. She has an indwelling Mccollum catheter but no active infection. CT scan, as documented above, is suspicious for a mass of the pancreatic head. Patient received 3 doses of morphine and 1 dose of Ativan in the emergency department which did entirely relieve her pain symptoms. She had no nausea or vomiting. Her vital signs remained stable during the ED course. I informed the patient of the CT findings and recommended that she be admitted to the hospital for further workup and MRI as recommended by radiology. Patient was agreeable. Bridge orders are placed. Consult for GI was also placed. The patient is normally followed by Dr. Yates and has also seen Dr. Maradiaga. She is admitted to the hospitalist service primarily. Prior to admission, all results are reviewed and discussed with her and all of her questions are answered. Dragon Disclaimer Dragon Disclaimer This electronic medical record was generated, in whole or in part, using a voice recognition dictation system. Departure Departure Referrals: YONATHAN YTAES MD (PCP) ELDA DOYLE DO Jul 27, 2018 00:33
[2018-07-27 00:37] LABS: BASO % 1 % (0-3); BILIRUBIN,URINE NEGATIVE (NEG); CLARITY,URINE CLEAR; COLOR,URINE YELLOW; EOS # 0.2 x10^3/uL (0.0-0.7); EOS % 4 % (0-3); HEMATOCRIT 38.6 % (36.0-47.0); HEMOGLOBIN 13.3 g/dL (12.0-15.5); LYMPH # 1.8 x10^3/uL (1.0-4.8); LYMPH % 31 % (24-48); MEAN CORPUSCULAR HEMOGLOBIN 31 pg (25-35); MEAN CORPUSCULAR HGB CONC 34 g/dL (31-37); MEAN CORPUSCULAR VOLUME 91 fL (79-100); MONO # 0.5 x10^3/uL (0.0-1.1); MONO % 8 % (0-9); NEUT # 3.2 x10^3uL (1.8-7.7); NEUT % 56 % (31-73); NITRITE,URINE NEGATIVE (NEG); PLATELET COUNT 272 x10^3/uL (140-400); PROTEIN,URINE NEGATIVE (NEG-TRACE); RED BLOOD COUNT 4.23 x10^6/uL (3.50-5.40); RED CELL DISTRIBUTION WIDTH 13.8 % (11.5-14.5); UROBILINOGEN,URINE 0.2 mg/dL (0.2 mg/dL); WHITE BLOOD COUNT 5.8 x10^3/uL (4.0-11.0)
[2018-07-27 00:41] LABS: BACTERIA,URINE 0 /HPF (0-FEW); RBC,URINE 0 /HPF (0-2); SQUAMOUS EPITHELIAL CELL,UR OCC /LPF; WBC,URINE OCC /HPF (0-4)
[2018-07-27 00:45] LABS: CALCIUM 9.8 mg/dL (8.5-10.1); CREATININE 1.1 mg/dL (0.6-1.0); GFR 49.7; POTASSIUM 3.6 mmol/L (3.5-5.1)
[2018-07-27 00:51] LABS: ALBUMIN 3.2 g/dL (3.4-5.0); DIRECT BILIRUBIN 0.7 mg/dL (0.0-0.2); TOTAL BILIRUBIN 0.9 mg/dL (0.2-1.0); TOTAL PROTEIN 6.7 g/dL (6.4-8.2)
[2018-07-27] MEDS ORDERED: IOHEXOL 300 MG/ML 100ML VIAL. IV ONE (01:15)
[2018-07-27] MEDS ORDERED: CONTRAST GIVEN. MC PRN (01:15)
[2018-07-27] MEDS ORDERED: MORPHINE SULFATE 4 MG/ML VIAL. IV ONE ×2 (01:15→03:45)
--- NOTE | 2018-07-27 02:43 | RAD ---
EXAM: CT Abdomen and Pelvis with IV contrast CLINICAL HISTORY: Abdominal pain COMPARISON: none TECHNIQUE: Helical CT of the abdomen and pelvis was performed following the administration of intravenous contrast. Axial, coronal and sagittal reformatted images were generated. PQRS compliance statement - One or more of the following individualized dose reduction techniques were utilized for this study: 1. Automated exposure control 2. Adjustment of the mA and/or kV according to patient size 3. Use of iterative reconstruction technique FINDINGS: Lower chest: Dependent opacities in the lung bases likely atelectasis/scarring. Abdomen and Pelvis: No focal liver lesion. The gallbladder is distended. There is intra and extrahepatic biliary ductal dilatation. There is also dilation of the pancreatic duct. This is seen to the level of a hypoenhancing mass within the pancreatic head/uncinate process measuring 2.2 x 1.7 x 1.8 cm (AP by transverse by craniocaudal). Distally the pancreas is atrophic. This hypoenhancing mass is suspicious for pancreatic adenocarcinoma and can be further evaluated by MRI. Spleen is unremarkable. Adrenal glands are normal. Symmetric nephrograms. Subcentimeter hypodense renal lesions are seen bilaterally. No hydronephrosis. No small or large bowel dilatation to suggest bowel obstruction. Large volume colonic stool content is seen. The appendix is normal. No abdominal or pelvic lymphadenopathy by size criteria. There is mild fat infiltration about the celiac trunk and SMA. No abdominal pelvic ascites. Amaya catheter is seen within the decompressed bladder. Atherosclerotic calcifications of the aorta are seen. Bones: Chronic/healed left inferior pubic ramus fracture is seen. IMPRESSION: 1. Intra and extra hepatic biliary ductal dilatation and pancreatic ductal dilatation to the level of a 2.2 cm hypoenhancing mass of the pancreatic head. This is suspicious for pancreatic adenocarcinoma and can be further assessed by MRI. 2. Associated pancreatic atrophy is seen. 3. No abdominal or pelvic lymphadenopathy by size criteria although there is mild retroperitoneal fat infiltration involving portions of the celiac and SMA. Electronically signed by: Man Bruno MD (07/27/2018 2:39 AM) [id number]
[2018-07-27] MEDS ORDERED: ONDANSETRON PF 4 MG/2 ML VIAL. IV PRN ×2 (03:45→10:30)
--- NOTE | 2018-07-27 04:13 | RAD ---
CLINICAL HISTORY: abnormal ct, ruq pain COMPARISON: None available. TECHNIQUE: Limited ultrasound examination of the right upper quadrant of the abdomen was performed FINDINGS: Liver: The liver measures is not enlarged. Hepatic echogenicity is normal and the margin is smooth. There is intra and extrahepatic biliary ductal dilatation. There is no focal abnormality of the liver. Gallbladder/Biliary: Layering material within the gallbladder likely sludge. The gallbladder is enlarged measuring 13.4 cm in length. No definite gallstones are seen. No wall thickening or pericholecystic fluid. There is no pain with direct transducer pressure over the gallbladder.The common bile duct measures 1 cm. The right kidney measures 9.2 cm in bipolar length. Right renal cysts are seen the largest is in the lower pole measuring 2.6 cm. Pancreas is obscured by overlying bowel gas. There is no free fluid in the subhepatic space. IMPRESSION: 1. Intra and extra hepatic biliary ductal dilatation with distention/hydropic appearance of the gallbladder as seen on prior CT. The pancreatic lesion was better assessed on prior CT. Electronically signed by: Man Bruno MD (07/27/2018 4:10 AM) [id number]
--- NOTE | 2018-07-27 05:24 | EKG ---
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
[2018-07-27] MEDS: IV NORMAL SALINE 1000ML BAG 1,000 ML IV SCH ×2 (05:45→17:05)
[2018-07-27] MEDS: MORPHINE SULFATE 4 MG/ML VIAL. IV PRN ×5 (07:16→23:22)
[2018-07-27] MEDS ORDERED: GABA300C8 (07:22)
[2018-07-27] MEDS ORDERED: CYCL10TA2 (07:22)
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
[2018-07-27] MEDS ORDERED: LACTULOSE 20 GM/30 ML SOLUTION. PO PRN (08:00)
[2018-07-27] MEDS ORDERED: ALBUTEROL SULFATE 2.5 MG/3 ML NEBU. NEB PRN (08:00)
[2018-07-27] MEDS ORDERED: MORPHINE SULFATE 2 MG/ML VIAL. IV PRN (10:30)
[2018-07-27] MEDS ORDERED: PROCHLORPERAZINE 10 MG/2 ML VIAL. IV PRN (10:30)
[2018-07-27] MEDS ORDERED: IV RINGERS,LACTATED 1000ML 1,000 ML IV SCH ×2 (10:30→10:51)
[2018-07-27] MEDS ORDERED: HYDROmorphone 2 MG/ML VIAL IV PRN (10:30)
[2018-07-27] MEDS ORDERED: fentaNYL PF VIAL 100 MCG/2 ML VIAL IV PRN ×6 (10:30→11:00)
[2018-07-27] MEDS ORDERED: LIDOCAINE 1% PF 2 ML VIAL. ID PRN ×3 (10:30→11:00)
[2018-07-27] MEDS ORDERED: PROPOFOL 20 ML IV ONE (10:32)
[2018-07-27] MEDS: IV RINGERS,LACTATED 1000ML 1,000 ML IV SCH ×2 (10:42→18:42)
[2018-07-27] MEDS ORDERED: MIDAZOLAM HCL/PF 2 MG/2 ML VIAL. IV PRN ×2 (10:45→11:00)
--- NOTE | 2018-07-27 10:57 | PDOC2 ---
GI CONSULT Reason For Consult: Pancreas mass HPI: HPI: Maggie Yates is a 68 years old female patient with history of multiple comorbidities including obesity, hypertension, hyperlipidemia, chronic obstructive lungs disease, anxiety/depression and chronic pain on narcotics. Patient also has history of unexplained urinary retention since February 2018 and has been on flomax and indwelling urinary catheter as per urology recommendation. Patient is currently admitted to the hospital after she presented with non specific upper abdominal pain that started several days ago.The pain has progressive worsened in the last few days prompting patient to come to ER. She denies any specific aggravating or alleviating factors. She has associated nausea but denies vomiting or hematemesis. No change in bowel habits from her base line. No melena or hematochezia. Has associated sob but denies orthopnea or PND. Patient denies any other acute symptoms. GI consulted for concern of pancreatic mass identified on imaging of abdomen with computed tomography. The mass was reported to be hypoenhancing 2.2cm sized mass at the head of the pancreas with intra and extra hepatic biliary ductal dilatation and pancreatic ductal dilatation. Patient denies any prior knowledge of the mass. She denies any prior history of alcoholism or smoking cigarettes. However, she admits to smoking marijuana with the last use being a week ago. Patient denies any significant weight loss. No family history of pancreatic cancer. Patient denies any history of yellowish discoloration of the eyes or skin. No change in color of the stool. No other symptoms. FH: Family History: Other (hematological malignacy) Social History: ALCOHOL: rare Drugs: Marijuana ROS: GEN: Denies fevers, chills, sweats HEENT: Denies blurred vision, sore throat CV: Denies chest pain RESP: Has sob but no orthopnea or PND. GI: Per HPI : Has mccollum cathter for urinary retention. ENDO: Denies weight changes NEURO: Denies confusion, dizziness MSK: Denies weakness, joint pain/swelling SKIN: Denies jaundice, pruritus Vitals: Vitals: Vital Signs Date Time Temp Pulse Resp B/P (MAP) Pulse Ox O2 Delivery O2 Flow Rate FiO2 07/27/18 07:16 Room Air 07/27/18 07:00 98.0 77 16 119/80 (93) 99 98.0 Labs: Labs: Laboratory Tests Test 07/27/18 00:28 07/27/18 07:31 White Blood Count 5.8 x10^3/uL (4.0-11.0) Red Blood Count 4.23 x10^6/uL (3.50-5.40) Hemoglobin 13.3 g/dL (12.0-15.5) Hematocrit 38.6 % (36.0-47.0) Mean Corpuscular Volume 91 fL (79-100) Mean Corpuscular Hemoglobin 31 pg (25-35) Mean Corpuscular Hemoglobin Concent 34 g/dL (31-37) Red Cell Distribution Width 13.8 % (11.5-14.5) Platelet Count 272 x10^3/uL (140-400) Neutrophils (%) (Auto) 56 % (31-73) Lymphocytes (%) (Auto) 31 % (24-48) Monocytes (%) (Auto) 8 % (0-9) Eosinophils (%) (Auto) 4 % (0-3) Basophils (%) (Auto) 1 % (0-3) Neutrophils # (Auto) 3.2 x10^3uL (1.8-7.7) Lymphocytes # (Auto) 1.8 x10^3/uL (1.0-4.8) Monocytes # (Auto) 0.5 x10^3/uL (0.0-1.1) Eosinophils # (Auto) 0.2 x10^3/uL (0.0-0.7) Basophils # (Auto) 0.0 x10^3/uL (0.0-0.2) Urine Collection Type Unknown Urine Color Yellow Urine Clarity Clear Urine pH 6.0 Urine Specific [place] 1.010 Urine Protein Negative mg/dL (NEG-TRACE) Urine Glucose (UA) Negative mg/dL (NEG) Urine Ketones (Stick) Negative mg/dL (NEG) Urine Blood Negative (NEG) Urine Nitrite Negative (NEG) Urine Bilirubin Negative (NEG) Urine Urobilinogen Dipstick 0.2 mg/dL (0.2 mg/dL) Urine Leukocyte Esterase Negative (NEG) Urine RBC 0 /HPF (0-2) Urine WBC Occ /HPF (0-4) Urine Squamous Epithelial Cells Occ /LPF Urine Bacteria 0 /HPF (0-FEW) Urine Mucus Slight /LPF Sodium Level 140 mmol/L (136-145) Potassium Level 3.6 mmol/L (3.5-5.1) Chloride Level 103 mmol/L (98-107) Carbon Dioxide Level 29 mmol/L (21-32) Anion Gap 8 (6-14) Blood Urea Nitrogen 9 mg/dL (7-20) Creatinine 1.1 mg/dL (0.6-1.0) Estimated GFR (Cockcroft-Gault) 49.7 Glucose Level 123 mg/dL (70-99) Calcium Level 9.8 mg/dL (8.5-10.1) Total Bilirubin 0.9 mg/dL (0.2-1.0) Direct Bilirubin 0.7 mg/dL (0.0-0.2) Aspartate Amino Transf (AST/SGOT) 57 U/L (15-37) Alanine Aminotransferase (ALT/SGPT) 70 U/L (14-59) Alkaline Phosphatase 198 U/L (46-116) Troponin I Quantitative 0.021 ng/mL (0.000-0.055) NH-Deb-H-Type Natriuretic Peptide 276 pg/mL (0-124) Total Protein 6.7 g/dL (6.4-8.2) Albumin 3.2 g/dL (3.4-5.0) Lipase 122 U/L (73-393) Glucose (Fingerstick) 98 mg/dL (70-99) Allergies: Coded Allergies: Penicillins (Verified Allergy, Intermediate, RASH, 07/27/18) latex (Verified Allergy, Unknown, 07/27/18) Medications: Current Medications Medications (Trade) Dose Ordered Sig/Jhon Route PRN Reason Start Time Stop Time Status Last Admin Dose Admin Morphine Sulfate (Morphine Sulfate) 6 mg 1X ONCE IV 07/27/18 00:15 07/27/18 00:16 DC 07/27/18 00:36 Ondansetron HCl (Zofran) 4 mg 1X ONCE IV 07/27/18 00:15 07/27/18 00:16 DC 07/27/18 00:35 Iohexol (Omnipaque 300 Mg/ml) 60 ml 1X ONCE IV 07/27/18 01:15 07/27/18 01:16 DC 07/27/18 01:34 Morphine Sulfate (Morphine Sulfate) 4 mg 1X ONCE IV 07/27/18 01:15 07/27/18 01:16 DC 07/27/18 01:19 Lorazepam (Ativan) 0.25 mg 1X ONCE IV 07/27/18 03:45 07/27/18 03:46 DC 07/27/18 03:59 Morphine Sulfate (Morphine Sulfate) 4 mg 1X ONCE IV 07/27/18 03:45 07/27/18 03:46 DC 07/27/18 03:58 Morphine Sulfate (Morphine Sulfate) 4 mg PRN Q2HR PRN IV PAIN 07/27/18 03:45 07/28/18 03:44 07/27/18 07:16 Sodium Chloride 1,000 ml @ 75 mls/hr [id number] IV 07/27/18 03:45 07/28/18 03:44 07/27/18 05:45 Imaging: Imaging: PATIENT: MAGGIE YATES ACCOUNT: [id number] : 1950 LOCATION: ER AGE: 68 SEX: F EXAM STATUS: REG ER ORD. PHYSICIAN: ELDA DOYLE DO REASON: Abdominal pain PROCEDURE: CT ABD PELV W/ IV CONTRST ONLY EXAM: CT Abdomen and Pelvis with IV contrast CLINICAL HISTORY: Abdominal pain COMPARISON: none TECHNIQUE: Helical CT of the abdomen and pelvis was performed following the administration of intravenous contrast. Axial, coronal and sagittal reformatted images were generated. PQRS compliance statement - One or more of the following individualized dose reduction techniques were utilized for this study: 1. Automated exposure control 2. Adjustment of the mA and/or kV according to patient size 3. Use of iterative reconstruction technique FINDINGS: Lower chest: Dependent opacities in the lung bases likely atelectasis/scarring. Abdomen and Pelvis: No focal liver lesion. The gallbladder is distended. There is intra and extrahepatic biliary ductal dilatation. There is also dilation of the pancreatic duct. This is seen to the level of a hypoenhancing mass within the pancreatic head/uncinate process measuring 2.2 x 1.7 x 1.8 cm (AP by transverse by craniocaudal). Distally the pancreas is atrophic. This hypoenhancing mass is suspicious for pancreatic adenocarcinoma and can be further evaluated by MRI. Spleen is unremarkable. Adrenal glands are normal. Symmetric nephrograms. Subcentimeter hypodense renal lesions are seen bilaterally. No hydronephrosis. No small or large bowel dilatation to suggest bowel obstruction. Large volume colonic stool content is seen. The appendix is normal. No abdominal or pelvic lymphadenopathy by size criteria. There is mild fat infiltration about the celiac trunk and SMA. No abdominal pelvic ascites. Mccollum catheter is seen within the decompressed bladder. Atherosclerotic calcifications of the aorta are seen. Bones: Chronic/healed left inferior pubic ramus fracture is seen. IMPRESSION: 1. Intra and extra hepatic biliary ductal dilatation and pancreatic ductal dilatation to the level of a 2.2 cm hypoenhancing mass of the pancreatic head. This is suspicious for pancreatic adenocarcinoma and can be further assessed by MRI. 2. Associated pancreatic atrophy is seen. 3. No abdominal or pelvic lymphadenopathy by size criteria although there is mild retroperitoneal fat infiltration involving portions of the celiac and SMA. Electronically signed by: Man Raya MD (07/27/2018 2:39 AM) [facility] DICTATED and SIGNED BY: MAN RAYA MD DATE: 07/27/18 0207 PE: GEN: NAD HEENT: Atraumatic, PERRLA LUNGS: CTAB HEART: RRR, no murmurs ABD: NABS, S/ND/NT, no masses DOUGLAS: Mccollum catheter in situ. EXTREMITY: No edema SKIN: No rashes, no jaundice NEURO/PSYCH: A & O 3 A/P: A/P: 1- Epigastric abdominal pain with nausea. Possible differential includes gastritis, erosions, ulcers or other mucosal process. Her upper GI symptoms could also be explained by underlying pancreatic process. Patient also using marijuana which could worsen her symptoms. 2- Pancreatic mass. This is concerning for neoplastic process. 4- urinary retention with mccollum catheter in situ. Plan: - keep patient NPO. - PPI BID. - Patient was advised to stop smoking marijuana. - EGD to rule out luminal process including inflammations, ulcers or other pathologic mucosal process. - Upper EUS with FNA. This was discussed with patient in great length. We will refer her to at . - Continue with all supportive care. - Please call with any questions or concern. Thank you for involving us in the care of this interesting patient. LINDA Simpson MD Jul 27, 2018 10:57
--- NOTE | 2018-07-27 11:41 | PDOC4 ---
OPERATIVE NOTE: Brief Operative Note Procedure: EGD. Indications: Upper abdominal pain with nausea. Medications: MAC Findings Esophagus: Unremarkable exam. Stomach: Moderate erythematous lesions mainly evident in the gastric body. Random gastric biopsies obtained to rule out H.pylori. Small Bowel: Few small sized non bleeding ulcers in second part of duodenum. Biopsies obtained for histology to rule out viral inclusions ( like CMV) versus other proces. Recommendations -Advise patient to avoid NSAIDS. - PPI BID. - Await for histology - Please check for fasting serum gastrin to rule out ZES in setting of multiple ulcers in the duodenum. - Advance diet as tolerated. - Call GI with any Q's. Pauline Sharma. PAULINE SHARMA MD Jul 27, 2018 11:41
[2018-07-27] MEDS: SENNOSIDES/DOCUSATE 8.6/50MG TABLET. PO SCH ×2 (13:40→20:16)
[2018-07-27] MEDS: PANTOPRAZOLE 40 MG TABLET.DR. PO SCH ×2 (13:41→17:06)
[2018-07-27] MEDS: DULoxetine HCL 30 MG CAPSULE.DR PO SCH (13:41)
[2018-07-27] MEDS: ASPIRIN ENTERIC COATED 81 MG TABLET.DR. PO SCH (13:41)
[2018-07-27] MEDS: clonazePAM 1 MG TABLET PO PRN ×2 (13:41→20:18)
[2018-07-27] MEDS: amLODIPine BESYLATE 10 MG TABLET PO SCH (13:42)
[2018-07-27] MEDS: traMADol 50 MG TABLET PO PRN ×2 (17:06→23:21)
[2018-07-27] MEDS ORDERED: ATORVASTATIN CALCIUM 20 MG TABLET PO SCH (21:00)
[2018-07-27] MEDS ORDERED: traZODone 100 MG TABLET. PO SCH (21:00)
[2018-07-27] MEDS: ONDANSETRON PF 4 MG/2 ML VIAL. IV PRN (23:31)
[2018-07-28 03:00] VITALS: BP 173/111
[2018-07-28] MEDS ORDERED: LABETALOL 20 MG/4 ML DISP.SYRIN. IVP PRN (03:30)
[2018-07-28] MEDS: MORPHINE SULFATE 2 MG/ML VIAL. IV PRN ×3 (03:50→11:15)
[2018-07-28] MEDS: clonazePAM 1 MG TABLET PO PRN (04:08)
[2018-07-28] MEDS ORDERED: ALPRAZolam 0.5 MG TABLET PO PRN (05:30)
[2018-07-28 07:00] VITALS: BP 130/78
[2018-07-28] MEDS: amLODIPine BESYLATE 10 MG TABLET PO SCH (08:26)
[2018-07-28] MEDS: DULoxetine HCL 30 MG CAPSULE.DR PO SCH (08:27)
[2018-07-28] MEDS: ASPIRIN ENTERIC COATED 81 MG TABLET.DR. PO SCH (08:27)
[2018-07-28] MEDS: SENNOSIDES/DOCUSATE 8.6/50MG TABLET. PO SCH (08:27)
[2018-07-28] MEDS: PANTOPRAZOLE 40 MG TABLET.DR. PO SCH (08:27)
[2018-07-28] MEDS: traMADol 50 MG TABLET PO PRN (08:28)
[2018-07-28 11:00] VITALS: BP 130/80
[2018-07-28] MEDS: ONDANSETRON PF 4 MG/2 ML VIAL. IV PRN (11:19)
[2018-07-28] MEDS ORDERED: MULTIVITAMIN with MINERAL TABLET. PO SCH (13:00)
[2018-07-28] MEDS ORDERED: ASCORBIC ACID 500 MG TABLET PO SCH (13:00)
[2018-07-28] MEDS ORDERED: HYDR-971 PO (13:10)
[2018-07-28] MEDS ORDERED: POLY17PO29 PO (13:11)
[2018-07-28] MEDS ORDERED: SENN1TAB8 PO (13:11)
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
--- NOTE | 2018-07-28 14:10 | PATHOLOGY ---
[facility] Accession Number: [id number] . 01 Material submitted: . PART A: SMALL BOWEL BIOPSY PART B: GASTRIC BIOPSY . 01 Clinical history: . Pre-OP DX: Abnormal CT/abdominal pain Post-OP DX: Small bowel ulcer, inflammation in stomach . 02 Diagnosis: A. Small bowel biopsy: - No significant pathologic abnormalities. . B. Gastric biopsy: - Superficial congestion and focal slight chronic inflammation. P/07/28/2018 . 02 Comment: Sections of the small bowel biopsy reveal segments of duodenal mucosa with focally prominent Theresa's glands. There are no sprue-like changes or significant inflammatory changes. There are no viral inclusions identified. . Sections of the gastric biopsy reveal segments of gastric antral and gastric body mucosa showing superficial congestion and focal slight chronic inflammation. A properly controlled immunoperoxidase stain for Helicobacter is negative Helicobacter organisms. (JPM:pit 07/28/2018) . Special stain performed: Immunoperoxidase stain for Helicobacter on B1. . 02 Electronically signed: . Yosvany Escobedo MD, Pathologist NPI- [id number] . 01 Gross description: . A. Received in formalin labeled "Trudy Mary Beth, small bowel BX," are 2 segments of vuong soft tissue measuring 0.7 x 0.3 x 0.3 cm in aggregate dimensions and ranging from 0.3 to 0.4 cm in maximum dimension. The specimen is submitted entirely in cassette A1. . B. Received in formalin labeled "Yates, Mary Beth, gastric BX, H. pylori," are 3 segments of vuong soft tissue measuring 1.4 x 0.5 x 0.3 cm in aggregate dimensions and ranging from 0.3 to 0.8 cm in maximum dimension. The specimen is submitted entirely in cassette B1. (TSD; 07/27/2018) TOB/TOB . 02 Pathologist provided ICD-10: K29.50, K31.89 . 02 CPT . 751595, 462301, [id number] Specimen Comment: A courtesy copy of this report has been sent to Specimen Comment: [phone], , , . Specimen Comment: Report sent to ,DR DOYLE,DR HOOK / DR YATES Specimen Comment: A duplicate report has been generated due to demographic updates. Performed at: 01 [facility] [address], [place], [place] [id number] MD Facundo Lemons MD Phone: [phone] Performed at: 02 [facility] [address] [place], [place] [id number] MD Yosvany Escobedo MD Phone: [phone]
--- NOTE | 2018-07-28 14:36 | PDOC ---
Subjective: Subjective: Pt continues to report pain in the upper abdomen. She has been experiencing nausea, dizziness, and a headache this morning. She is not vomiting, but reports hypersalivation and frequently having to spit. She reports not having a BM since arriving to hospital. She is very concerned about her pancreatic mass and wonders when she will be getting this biopsied and what her prognosis is. Objective: Vital Signs: Vital Signs Date Time Temp Pulse Resp B/P (MAP) Pulse Ox O2 Delivery O2 Flow Rate FiO2 07/28/18 12:00 16 Room Air 07/28/18 11:00 98.2 82 130/80 (97) 96 98.2 07/27/18 11:25 2 Labs: Laboratory Tests Test 07/27/18 20:32 07/28/18 07:55 07/28/18 11:36 Glucose (Fingerstick) 117 mg/dL 129 mg/dL 188 mg/dL Imaging: EGD 07/27/18 Procedure: EGD. Indications: Upper abdominal pain with nausea. Medications: MAC Findings Esophagus: Unremarkable exam. Stomach: Moderate erythematous lesions mainly evident in the gastric body. Random gastric biopsies obtained to rule out H.pylori. CT A/P 07/27/18 IMPRESSION: 1. Intra and extra hepatic biliary ductal dilatation and pancreatic ductal dilatation to the level of a 2.2 cm hypoenhancing mass of the pancreatic head. This is suspicious for pancreatic adenocarcinoma and can be further assessed by MRI. 2. Associated pancreatic atrophy is seen. 3. No abdominal or pelvic lymphadenopathy by size criteria although there is mild retroperitoneal fat infiltration involving portions of the celiac and SMA. Abdominal ultrasound 07/27/18 IMPRESSION: 1. Intra and extra hepatic biliary ductal dilatation with distention/hydropic appearance of the gallbladder as seen on prior CT. The pancreatic lesion was better assessed on prior CT. PE: GEN: NAD HEENT: Atraumatic, PERRLA LUNGS: CTAB HEART: RRR, no murmurs ABD: NABS, S/ND/NT, no masses EXTREMITY: No edema SKIN: No rashes, no jaundice NEURO/PSYCH: A & O 3 A/P: 1- Epigastric abdominal pain with nausea. Possible differential includes gastritis, erosions, ulcers or other mucosal process. Her upper GI symptoms could also be explained by underlying pancreatic process. Patient also using marijuana which could worsen her symptoms. 2- Pancreatic mass. This is concerning for neoplastic process. 4- urinary retention with mccollum catheter in situ. Plan: - Continue PPI BID. - Patient was advised to stop smoking marijuana. - Upper EUS with FNA. This was discussed with patient in great length. We will refer her to at . - Pt plans for discharge today and will f/u with for EUS JANELL SHAH Jul 28, 2018 14:36
== END 2018-07-28 14:15 | disposition home or self-care (01) | DRG 438 ==
LOC: ER 23:04 → 4 NORTH 07-27 03:30 → EEVIPCON 07-27 03:30
PROVIDERS: ADMIT Internal Medicine; ATTEND Internal Medicine
PROC: 0DB68ZX Excision of Stomach, Via Natural or Artificial Opening Endoscopic, Diagnostic (ICD-10-PCS; principal; 2018-07-27 11:00)
DX: K86.9 Disease of pancreas, unspecified (principal); E43 Unspecified severe protein-calorie malnutrition; N39.0 Urinary tract infection, site not specified; K26.9 Duodenal ulcer, unspecified as acute or chronic, without hemorrhage or perforation; E78.5 Hyperlipidemia, unspecified; Z98.51 Tubal ligation status; F12.90 Cannabis use, unspecified, uncomplicated; F32.9 Major depressive disorder, single episode, unspecified; F41.9 Anxiety disorder, unspecified; I11.0 Hypertensive heart disease with heart failure; I50.9 Heart failure, unspecified; J44.9 Chronic obstructive pulmonary disease, unspecified; E66.9 Obesity, unspecified; M19.90 Unspecified osteoarthritis, unspecified site; G89.29 Other chronic pain; K11.7 Disturbances of salivary secretion; M41.9 Scoliosis, unspecified; Z90.710 Acquired absence of both cervix and uterus; Z79.899 Other long term (current) drug therapy; Z68.22 Body mass index [BMI] 22.0-22.9, adult; Z88.0 Allergy status to penicillin; Z91.040 Latex allergy status; Z71.51 Drug abuse counseling and surveillance of drug abuser
CPT/HCPCS: 36415; 43239; 74177; 76705; 80048; 80076; 81001; 82941; 82962; 83690; 83880; 84484; 85025; 87086; 88305; 88342; 93005; 96374; 96375; 96376; J2060; J2270; J2405; J2704; J3490; J7030; J7120; Q9967; 99285-25